=== PATIENT | female | born 1990 | race Caucasian/White ===

== ENCOUNTER 2025-07-27 21:00 | Emergency (ER) | payer BC ==
[2025-07-27] MEDS: Diphtheria,Pertussis(Acell),Tetanus Vaccine 0.5 ML Syringe IM ONE (21:51)
[2025-07-27 22:32] VITALS: BP 110/72; PULSE 72
== END 2025-07-27 22:30 | disposition home or self-care (01) ==
LOC: MW.ED 21:00
DX: S61.210A Laceration without foreign body of right index finger without damage to nail, initial encounter (principal); S61.011A Laceration without foreign body of right thumb without damage to nail, initial encounter; Z23 Encounter for immunization; Z88.8 Allergy status to other drugs, medicaments and biological substances; Z79.899 Other long term (current) drug therapy; W25.XXXA Contact with sharp glass, initial encounter
CPT/HCPCS: 12002; 90471; 90715; 99282; J2003